=== PATIENT | female | born 1965 | race Caucasian/White ===

== ENCOUNTER → 2017-01-20 | Outpatient (CLI) | payer BC ==
[~2017-01-20] MED LIST: ATOR10TA82 PO; FRRG PO; HYDR50TA3 PO; LORA0.5T12 PO; LOSA1TAB PO; POTA20TA13 PO; PSYL55.43 PO; SENNTAB23 PO
--- NOTE | 2017-01-24 07:47 | MAMMOGRAPHY REPORT ---
BILATERAL DIGITAL SCREENING MAMMOGRAM TOMOSYNTHESIS WITH CAD: 01/20/2017 CLINICAL HISTORY: Routine screening. Patient has no complaints. TECHNIQUE: Breast tomosynthesis in addition to standard 2D mammography was performed. Current study was also evaluated with a Computer Aided Detection (CAD) system. COMPARISON: Comparison is made to exams dated: 03/21/2014 mammogram, 03/26/2013 mammogram, 03/26/2013 ul trasound, and 03/15/2013 [facility]. BREAST COMPOSITION: There are scattered areas of fibroglandular density in both breasts. FINDINGS: There has been no significant interval change comparing to the prior mammograms from 2013 and 2014. There are a few scattered stable benign-appearing microcalcifications. No suspicious mass , architectural distortion or cluster of suspicious microcalcifications is seen. IMPRESSION: ACR BI-RADS CATEGORY 1: NEGATIVE There is no mammographic evidence of malignancy. A 1 year screening mammogram is recommended. The pa tient will receive written notification of the results. Approximately 10% of breast cancers are not detected with mammography. A negative mammographic report should not delay biopsy if a clinically suggestive mass is present. Mel Mark M.D. ay/:01/23/2017 15:52:54 Department Store Salesperson: Myriam JEFFR, M, [facility] letter sent: Normal 1/2 BI-RADS Code: ACR BI-RADS Category 1: Negative
== END | disposition home or self-care (01) ==
LOC: C.MAMM 13:48
PROVIDERS: ATTEND Nurse Practitioner Family
DX: Z12.31 Encounter for screening mammogram for malignant neoplasm of breast (principal)

== ENCOUNTER 2023-06-20 10:25 | Observation (INO) ==
--- NOTE | 2023-05-23 14:57 | PAT Medication Instructions ---
Medication Instructions Date of Service May 23, 2023 Home Medications L.acidophilus,rhamnosus-B.breve-S.thermophilus 3 billion cell chew tab 1 tab PO QAM atorvastatin 20 mg tablet 20 mg PO QPM buspirone 10 mg tablet 10 mg PO QPM cholecalciferol (vitamin D3) 25 mcg (1,000 unit) capsule (Vitamin D3) 25 mcg PO QPM hydrochlorothiazide 50 mg tablet 25 mg PO QAM losartan 25 mg tablet 25 mg PO QAM magnesium glycinate 100 mg tablet 100 mg PO QPM potassium chloride 20 mEq tablet,extended release 20 meq PO BID DO NOT take the morning of surgery L.acidophilus,rhamnosus-B.breve-S.thermophilus 3 billion cell chew tab 1 tab PO QAM hydrochlorothiazide 50 mg tablet 25 mg PO QAM losartan 25 mg tablet 25 mg PO QAM potassium chloride 20 mEq tablet,extended release 20 meq PO BID Take evening before surgery atorvastatin 20 mg tablet 20 mg PO QPM buspirone 10 mg tablet 10 mg PO QPM cholecalciferol (vitamin D3) 25 mcg (1,000 unit) capsule (Vitamin D3) 25 mcg PO QPM magnesium glycinate 100 mg tablet 100 mg PO QPM potassium chloride 20 mEq tablet,extended release 20 meq PO BID Other Notes NOTHING TO EAT OR DRINK AFTER MIDNIGHT. If you have any questions please call us at [phone] or [phone] or [phone] or [phone]
--- NOTE | 2023-05-31 13:47 | Anesthesiology Consultation ---
Date of Service May 31, 2023 Assessment & Plan (1) Encounter for pre-operative examination: Chart Review Chart Review: Acceptable Risk for Surgery (pending PCP clearance and most Hgb A1C results ) and Patient seen in Pre Admission Testing - Awaiting PCP clearance 06/08/23 (Katia Marie [facility]) - Please obtain most recent Hgb A1C results from April 2023 ([facility]) (per surgeon's office) Awareness with last TKA (2015) Pt currently scheduled as 23 hours observation. If surgeon decides to change patient to Same Day Joint, patient would be acceptable risk for TKA, pending patient is motivated, has good support and surgeon's office completes [facility] preop requirements. Per PAT appt on 05/31/23, no recent illness/disease exposures, illness related symptoms, or recent illness/disease positive tests. Will leave to surgeon's discretion if preop Covid testing needed Teaching & Discussion Pre-Anesthesia Teaching/Discussion Notes: Instructed NPO after midnight before surgery,except medications with 15 cc of water. Medication instructions provided according to the PAT guidelines. History Surgery Operation Date: 06/20/23 07:00 Proposed Procedures p Left Total Knee Arthroplasty - Sam Margarette Rain MD Height/Weight Height: 5 ft 4 in Weight: 113.9 kg Allergies Allergy/AdvReac Type Severity Reaction Status Date / Time lisinopril AdvReac Mild Cough Verified 05/18/23 12:08 Medications Home Medications Medication Instructions Recorded Confirmed Last Taken L.acidophilus,rhamnosus-B.breve-S.thermophilus 1 tab PO QAM 05/18/23 05/18/23 Unknown 3 billion cell chew tab atorvastatin 20 mg tablet 20 mg PO QPM 05/18/23 05/18/23 Unknown buspirone 10 mg tablet 10 mg PO QPM 05/18/23 05/18/23 Unknown cholecalciferol (vitamin D3) 25 25 mcg PO QPM 05/18/23 05/18/23 Unknown mcg (1,000 unit) capsule (Vitamin D3) hydrochlorothiazide 50 mg tablet 25 mg PO QAM 05/18/23 05/18/23 Unknown losartan 25 mg tablet 25 mg PO QAM 05/18/23 05/18/23 Unknown magnesium glycinate 100 mg tablet 100 mg PO QPM 05/18/23 05/18/23 Unknown potassium chloride 20 mEq 20 meq PO BID 05/18/23 05/18/23 Unknown tablet,extended release Past Medical History Medical History Anxiety Hx of constipation Hyperlipidemia Hypertension Mitral valve prolapse 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, stable no recent ECHO Exercise / Class Metabolic Activity II 4-5 Yardwork/Stairs/Walk up hill (one flight of stairs - no chest pain or SOB - uses cane for ambulation ) Past Surgical History Surgical History History of colonoscopy History of tonsillectomy and adenoidectomy Knee joint replacement status rt Past Anesthesia History No Hx of Anesthesia Complications and No Family Hx of Anesthesia Complications History of PONV No Hx of PONV and No Hx of Motion Sickness Social History Smoking Status: Never smoker Do You Dip or Chew Tobacco: No Hx Alcohol Use: Yes alcohol intake frequency: a few times a month Hx Substance Use: No substance use type: does not use Review of Systems Patient denies chest pain, shortness of breath, dyspnea on exertion, reflux, cough, wheezing, palpitations. No hx of seizures, stroke, MT, apnea/snoring. No hx of blood clots or blood transfusions Physical Exam Vital Signs VITALS BP 151/84 P 75 TEMP 98.2 SP02 96% RESP 16 Constitutional no acute distress ENMT Mouth: no TMJ clicking Thyromental Distance: > or= 3.5 Finger Breadths (3.5) Mallampati Class: I Crowns to side teeth Neck neck extension not limited Respiratory normal respiratory effort; no respiratory distress Auscultation: lungs clear to auscultation bilaterally; no wheezes Cardiovascular Rate/Rhythm: regular rate and regular rhythm Heart Sounds: no murmur (no significant murmur noted on exam ) Vessels: no carotid bruit (Discussed with Dr. Mckeon- no further evaluation needed) Musculoskeletal Spine: no pain with cervical ROM Extremities: extremities normal to inspection Psychiatric Orientation: alert Lab Results Anesthesia Preop Results Results Anesthesia Widget: WBC 8.51 K/ul (4.8-10.8) 05/31/23 Hgb 13.1 g/dl (12.0-16.0) 05/31/23 Hct 37.8 % (37.0-47.0) 05/31/23 Plt 249 K/uL (130-400) 05/31/23 Na 135 mmol/L (136-145) L 05/31/23 K 3.3 mmol/L (3.5-5.1) L 05/31/23 Cl 100 mmol/L (98-107) 05/31/23 CO2 26 mmol/L (21-32) 05/31/23 BUN 14 mg/dl (6-23) 05/31/23 Creat 0.64 mg/dl (0.6-1.2) 05/31/23 Glucose Level 124 mg/dl (70-99(Fasting)) H 05/31/23 PT 10.3 Seconds (9.0-12.0) 05/31/23 PTT 25 Seconds (21-31) 05/31/23 INR 0.9 (0.9-1.1) 05/31/23 Urine Color Yellow 05/31/23 Urine Appearance Clear (Clear) 05/31/23 Urine pH 7.0 (4.5-7.5) 05/31/23 Urine Specific [place] 1.008 (1.000-1.030) 05/31/23 Urine Protein Negative (Negative) 05/31/23 Urine Glucose (UA) Negative (Negative) 05/31/23 Urine Ketones Negative (Negative) 05/31/23 Urine Blood Negative (Negative) 05/31/23 Urine Nitrite Negative (Negative) 05/31/23 Urine Bilirubin Negative (Negative) 05/31/23 Urine Urobilinogen Negative (Negative) 05/31/23 Urine Leukocyte Esterase Trace (Negative) H 05/31/23 Urine WBC (Auto) 0-5 /hpf (0-5) 05/31/23 Urine RBC (Auto) 0-2 /hpf (0-2) 05/31/23 Urine Hyaline Casts (Auto) 0-2 /lpf (0-2) 05/31/23 Urine Epithelial Cells (Auto) 0-2 /hpf (0-2) 05/31/23 Urine Bacteria (Auto) None Seen (None Seen) 05/31/23 Blood Type AB Positive 05/31/23 Antibody Screen NEGATIVE 05/31/23 Testing Electrocardiogram Date: 05/31/23 Findings: + NSR @ (74bpm) Nonspecific ST abnormality Chest X-Ray Date: 04/13/23 FINDINGS: PA and lateral chest radiographs are compared to study dated 07/10/2015. The cardiomediastinal silhouette is unremarkable noting atherosclerotic calcification of the thoracic aorta. There is mild bibasilar scarring/atelectasis. The lungs and pleural spaces are otherwise clear. There is no pneumothorax. The bony thorax appears intact. IMPRESSION: No active disease in the chest.
[~2023-06-20 10:25] MED LIST changes: -ATOR10TA82 PO; +BUPIVACAINE 0.5 % 5 MG/1 ML PF 10ML VIAL ONE; -FRRG PO; -HYDR50TA3 PO; -LORA0.5T12 PO; -LOSA1TAB PO; -POTA20TA13 PO; -PSYL55.43 PO; +ROPIVACAINE 0.5% 5 MG/ML 30 ML VIAL ONE; -SENNTAB23 PO
[2023-06-20] MEDS ORDERED: PROPOFOL IV EMULSION 10 MG/ML 20 ML VIAL IV ONE ×5 (10:29→12:48)
[2023-06-20] MEDS ORDERED: fentaNYL citrate PF 100 MCG/2 ML VIAL ONE (10:29)
[2023-06-20] MEDS ORDERED: MIDAZOLAM HCL 1 MG/ML 2ML VIAL ONE ×3 (10:29→12:08)
[2023-06-20] MEDS: ACETAMINOPHEN 500 MG TAB PO SCH ×2 (11:05→19:45)
[2023-06-20] MEDS: CeleBREX 200 MG CAP PO SCH (11:06)
[2023-06-20] MEDS: Scopolamine 1 MG TDSY TD SCH (11:06)
[2023-06-20] MEDS: LR 500ML BOLUS, THEN 15ML/HR IV SCH (11:10)
[2023-06-20] MEDS ORDERED: ONDANSETRON INJ 2 MG/ML 2 ML VIAL IV PRN (11:10)
[2023-06-20] MEDS ORDERED: ePHEDrine sulfate 50 MG/ML AMP IV PRN (11:10)
[2023-06-20] MEDS ORDERED: fentaNYL citrate PF 100 MCG/2 ML VIAL IV PRN (11:10)
[2023-06-20] MEDS ORDERED: ATROPINE SULFATE 0.1 MG/ML 10ML SYR IV PRN (11:10)
--- NOTE | 2023-06-20 11:12 | History & Physical Bridge Note ---
Date of Service June 20, 2023 History & Physical Bridge Note I have examined the patient, reviewed the History & Physical and in the interval since the performance of the History & Physical I have noted the following changes of clinical significance: no changes noted
[2023-06-20] MEDS: LR 60ML/HR IV SCH (11:26)
[2023-06-20] MEDS: TRANEXAMIC ACID 1,000 MG **IV Pre-op IV SCH (11:26)
[2023-06-20] MEDS: ROPIV 0.5% 246mg, Ketorolac 30mg, EPINEPHrine 0.5mg in NSS INFIL SCH (12:26)
[2023-06-20] MEDS: ceFAZolin 2000MG 2,000 MG/15 ML SYR IV SCH ×2 (12:26→21:54)
[2023-06-20] MEDS: ORTHO JOINT ANESTHETIC ONE (12:27)
[2023-06-20] MEDS ORDERED: PHENYLEPHRINE 100MCG/ML 10ML SYR IV ONE (12:49)
[2023-06-20] MEDS ORDERED: ePHEDrine sulfate 50 MG/ML AMP ONE (13:06)
--- NOTE | 2023-06-20 13:52 | Operative Report ---
Post Operative Report Pre & Post Diagnosis Operation Date: 06/20/23 12:20 Pre-Op Diagnosis: Osteoarthritis Knee Left Post-Op Diagnosis: Osteoarthritis Knee Left I identified the patient and participated in the time-out.: Yes Procedure Operation Date: 06/20/23 12:20 Actual Procedures p Left Total knee replacement, imageless computer assisted navigation (Left) - Sam Rain MD Surgeon Sam Rain MD Ice House Supervisor Nikko rosenberg PA-C (No fellow avail) Estimated Blood Loss 75 Findings See Below Examined Under Anesthesia: ROM -- There was 5 degrees to 130 degrees of flexion Ligamentous examination -- revealed stable: Maria De Jesus, posterior drawer, varus at 0 and 30 degrees; and valgus stress at 0 and 30 degrees showed pseudolaxity of 1mm. [place] Grade IV changes of medial and patellofemoral compartments and grade II-III changes LFC. There were marginal osteophytes. Fluids 1400 cc Specimens Left knee contents Anesthesia Type MAC Spinal Regional Complications none Indications This is a 57-year-old female who has clinical and radiographic findings consistent with osteoarthritis of the a left knee. I recommended that a left total knee replacement be performed. The patient understands the risks of surgery, which include but not limited to: bleeding, infection, re-operation, damage to nerves and arteries, continued knee pain, knee stiffness, DVT, and . The patient understands all of these instructions and explanations, all of his questions have been satisfactorily addressed and the patient has elected to proceed. Informed consent was signed. Description of Procedure IMPLANTS: 1. Femur: Triathlon #5 Left PS. 2. Tibia: Triathlon #4 [place] with 12 x 50 mm stem. 3. Insert: Triathlon #4 x 13 mm PS X3 poly. 4. Patella: Triathlon A29 x 9 mm X3 poly. 5. [place] cement. Nikko Rosenberg PA-C is assisting with positioning, retracting, and closure due to fellow not available. Procedure: The patient was taken to the Operating Room and placed in the supine position after spinal and adductor canal nerve block was administered. My initials and a multidisciplinary time-out were used to identify the left leg as the correct operative limb. A tourniquet was placed high in the thigh. Prior to the incision, 2 grams of intravenous Ancef were given. The left leg was then prepped and draped in a standard sterile fashion. An Esmarch was used to exsanguinate the leg and the tourniquet was inflated to 250 mmHg. The planned mid-line 20 cm incision was created exposing the extensor mechanism. The medial parapatellar arthrotomy was made and the patella was everted. The patella was addressed first. It was prepared by reaming from 21 mm down to 12 mm. An A29 button was found to fit best. The peg holes were made in the standard fashion. The femur was addressed next and using computer assisted OrthoAlign with 3 degrees of flexion and 0 degrees of valgus, removing 10 mm in the standard fashion for the distal cut. The cut was made and the 4-in-1 cutting block for a size 5 femur was placed. These cuts and the cuts to place the box were made in the standard fashion. Our attention was then drawn to the tibia cut with using imageless computer assisted OrthoAlign, taking 2 mm from the medial low side. There was sufficient extension and flexion gap to fit a 13 mm spacer. A #4 Tibial baseplate fit well. A trial with a 13 mm spacer showed excellent stability in both flexion and extension, with good ligament balance, and thumbs free patellar tracking. Range of motion of 0-130 degrees. The tibial baseplate was prepped for the keel and stem. A stem was used due to some areas of soft bone, to avoid subsidence. All components were removed. 90 ml of total knee cocktail were injected into the soft tissues and periosteum. All surfaces were copiously irrigated prior to placement of the components. The femoral component followed by Tibial baseplate were cemented in place and a 13mm trial placed. Next, the patellar button was placed using the same cement. Once the cement had cured, the range of motion and stability were unchanged. The 9 mm X3 poly was placed. Again, the range of motion and stability were unchanged. The tourniquet was deflated and second dose of TXA was given. Hemostasis was obtained. The extensor mechanism was closed with 1-0 Vicryl and 0 Stratafix with the knee bent approximately 60 degrees in a standard fashion. The peritenon and deep fascia was closed with 2-0 Vicryl. The subcutaneous layer was closed with 3-0 Vicryl. The skin was closed with Zipline and shield. The limb was cleaned and dried. 4x4 dressing was placed over top followed by ABDs, sterile Webril, and a foot to thigh Bryan bandage. The patient was then transferred to the Recovery Room in stable condition. The sponge and needle counts were correct. POST-OP INSTRUCTIONS: The patient will be WBAT. The patient will be admitted to the hospital. Co mplete 24-hour course antibiotics. Labs will be obtained during the stay. DVT prophylaxis will included aspirin for 6 weeks, TEDs, and mechanical foot pumps. The dressing will be changed postop day #2-3 and covered with a Silverlon dressing. I attest to the content of the Intraoperative Record and any orders documented therein. Any exceptions are noted below.
--- NOTE | 2023-06-20 13:52 | Post Operative Brief Note ---
Immediate Post Op Note v1 Date of Surgery June 20, 2023 Pre & Post Diagnosis Operation Date: 06/20/23 12:20 Pre-Op Diagnosis: Osteoarthritis Knee Left Post-Op Diagnosis: Osteoarthritis Knee Left I identified the patient and participated in the time-out.: Yes Procedure Operation Date: 06/20/23 12:20 Actual Procedures p Left Total Knee Arthroplasty(Left) - Sam Rain MD Surgeon Sam Rain MD Copy Camera Operator Nikko rosenberg PA-C (No fellow avail) Estimated Blood Loss 75 Findings Consistent with Post-Op Diagnosis Fluids 1400 cc Specimens Left knee contents Anesthesia Type MAC Spinal Regional Complications none
--- NOTE | 2023-06-20 14:06 | Operative Report ---
Post Operative Report Pre & Post Diagnosis Operation Date: 06/20/23 12:20 Pre-Op Diagnosis: Osteoarthritis Knee Left Post-Op Diagnosis: Osteoarthritis Knee Left I identified the patient and participated in the time-out.: Yes Procedure Operation Date: 06/20/23 12:20 Actual Procedures p Left Total Knee Arthroplasty(Left) - Sam Rain MD Surgeon Sam Rain M.D. Clerical Assigner Nikko rosenberg PA-C (No fellow avail) Estimated Blood Loss 75 Findings Consistent with Post-Op Diagnosis Specimens bone and soft tissue Anesthesia Type MAC Spinal Regional Description of Procedure Patient was taken to the operating room and placed under IV sedation with spinal anesthesia and peripheral nerve block. Time out was performed. She was given 2 g of IV Ancef for surgical prophylaxis. She was given 1 g of IV TXA preoperatively for bleeding prophylaxis. She was prepped and draped in routine sterile fashion. I was present during the entire case and assisted with positioning, tissue retraction, trialing of implants, implantation of hardware, hemostasis, cementing, closure and dressings. Please see Dr. Rain's operative report for further details regarding today's procedure. Patient was awakened and transferred to the recovery room in stable condition. I attest to the content of the Intraoperative Record and any orders documented therein. Any exceptions are noted below.
--- NOTE | 2023-06-20 14:40 | XRay Report ---
LEFT KNEE 2 VIEWS History: Left total knee arthroplasty. Degenerative arthritis. Postop. FINDINGS: The patient is status post a left total knee arthroplasty. The hardware is intact. No fract ure or dislocation. IMPRESSION: Left total knee arthroplasty. No evidence for hardware complication. ACT 112: Negative or not required by law. Electronically signed by: Abilio Heredia M.D. 06/20/2023 2:39 PM
--- NOTE | 2023-06-20 14:54 | Anesthesiology Progress Note ---
Date of Service June 20, 2023 Anesthesia Post Procedure Vital Signs Vital Signs: Temp Pulse Pulse Resp BP Pulse Ox O2 Del Method 06/20/23 14:50 79 16 147/76 H 100 Room Air 06/20/23 14:40 77 20 151/82 H 100 Room Air 06/20/23 14:30 86 18 134/67 97 Room Air 06/20/23 14:20 97.5 F L 87 18 142/66 H 98 Room Air 06/20/23 14:10 92 H 14 123/63 98 Room Air 06/20/23 14:01 97.2 F L 92 H 19 110/52 L 97 Room Air 06/20/23 10:52 98.8 F 80 20 158/91 H 95 Room Air Pain Intensity Left Knee: Pain Intensity: 3 Transfer of Care Handoff Completed per policy Notes Mental Status: alert / awake / arousable and participated in evaluation Patient Amnestic to Procedure: Yes Nausea / Vomiting: adequately controlled Pain: adequately controlled Airway Patency, RR, SpO2: stable & adequate BP & HR: stable & adequate Hydration State: stable & adequate Neuraxial Anesthesia: was administered and sensory block is resolving Anesthetic Complications: no major complications apparent and Pt Satisfied with anesthetic care
[2023-06-20] MEDS ORDERED: HYDROmorphone INJ 0.5 MG/0.5 ML SYR IV PRN (16:04)
[2023-06-20] MEDS ORDERED: NALOXONE HCL 0.4 MG/1 ML VIAL/CARP IV PRN (16:04)
[2023-06-20] MEDS ORDERED: bisacodyL 10 MG SUPP PR PRN (16:04)
[2023-06-20] MEDS ORDERED: METOCLOPRAMIDE HCL INJ 5 MG/ML 2 ML VIAL IV PRN (16:04)
[2023-06-20] MEDS ORDERED: MAGNESIUM HYDROXIDE SUSP 30 ML UDC PO PRN (16:04)
[2023-06-20] MEDS ORDERED: diphenhydrAMINE 50 MG/ML VIAL IV PRN (16:04)
[2023-06-20] MEDS: TRANEXAMIC ACID 1,000 MG **IV Intra-op IV SCH (16:49)
[2023-06-20] MEDS: Scopolamine CHECK PATCH PLACEMENT SCH (17:00)
[2023-06-20] MEDS: SODIUM CHLORIDE 0.9% 1,000 ML IV SCH (17:00)
[2023-06-20] MEDS: KETOROLAC 30 MG/ML VIAL IV SCH (17:01)
--- NOTE | 2023-06-20 18:42 | Orthopedic Progress Note ---
Date of Service June 20, 2023 Assessment & Plan (1) Left knee DJD: Plan: POD #0 s/p L TKA, doing as well as expected. Resume diet. WBAT with walker. OOB to chair. Continue pain control. Complete 24 hours of antibiotics Check labs tomorrow. DVT prophylaxis: TEDs 3 weeks, foot pumps while in hospital, ASA 81 mg BID for 6 weeks. PT/OT. D/C planning. Present on Admission?: Yes Admission and Anticipated Discharge Date Admission Date: June 20, 2023 Subjective My left leg still feels numb and funny. Physical Exam Physical Exam: LLE: BCR < 2 sec. Sensation to Light touch is absent. Unable to wiggle her toes. Calf is soft and non-tender. Dressing is clean, dry, intact. Results & Data Vital Signs (Past 12 Hours) Vital Signs Temp Pulse Pulse Pulse Resp BP BP 06/20/23 18:00 36.3 C L 74 16 125/77 06/20/23 17:13 36.5 C 74 16 137/85 06/20/23 16:30 36.4 C L 86 18 151/79 H 06/20/23 15:59 36.4 C L 73 18 138/79 06/20/23 15:40 78 15 145/76 H 06/20/23 15:30 84 20 141/70 H 06/20/23 15:20 75 16 138/64 06/20/23 15:10 79 16 139/71 06/20/23 15:05 141/77 H 06/20/23 15:00 75 17 166/70 H 06/20/23 14:50 79 16 147/76 H 06/20/23 14:40 77 20 151/82 H 06/20/23 14:30 86 18 134/67 06/20/23 14:20 36.4 C L 87 18 142/66 H 06/20/23 14:10 92 H 14 123/63 06/20/23 14:01 36.2 C L 92 H 19 110/52 L 06/20/23 10:52 37.1 C 80 20 158/91 H Pulse Ox O2 Del Method 06/20/23 18:00 99 Room Air 06/20/23 17:13 99 Room Air 06/20/23 16:30 97 Room Air 06/20/23 15:59 100 Room Air 06/20/23 15:40 97 Room Air 06/20/23 15:30 97 Room Air 06/20/23 15:20 97 Room Air 06/20/23 15:10 98 Room Air 06/20/23 15:05 06/20/23 15:00 100 Room Air 06/20/23 14:50 100 Room Air 06/20/23 14:40 100 Room Air 06/20/23 14:30 97 Room Air 06/20/23 14:20 98 Room Air 06/20/23 14:10 98 Room Air 06/20/23 14:01 97 Room Air 06/20/23 10:52 95 Room Air Diagnostic Findings Impressions Knee X-Ray 06/20/23 14:09 LEFT KNEE 2 VIEWS History: Left total knee arthroplasty. Degenerative arthritis. Postop. FINDINGS: The patient is status post a left total knee arthroplasty. The hardware is intact. No fracture or dislocation. IMPRESSION: Left total knee arthroplasty. No evidence for hardware complication. ACT 112: Negative or not required by law. Electronically signed by: Abilio Heredia M.D. 06/20/2023 2:39 PM
[2023-06-20] MEDS: oxyCODONE HCL IR 5 MG TAB (IMMEDIATE RELEASE) PO PRN (19:51)
[2023-06-20] MEDS: HYDROmorphone INJ 1 MG/ML SYRINGE IV PRN (21:49)
[2023-06-20] MEDS: ASPIRIN 81 MG ECTAB PO SCH (21:56)
[2023-06-20] MEDS: DOCUSATE SODIUM 100 MG CAP PO SCH (22:00)
[2023-06-20] MEDS: ATORVASTATIN 20 MG TAB PO SCH (22:00)
[2023-06-20] MEDS: POTASSIUM CHLORIDE CRTAB 20 MEQ TABCR PO SCH (22:01)
[2023-06-20] MEDS: SENNA 8.6 MG TAB PO SCH (22:01)
[2023-06-20] MEDS: busPIRone 5 MG TAB PO SCH (22:02)
[2023-06-20] MEDS: CHOLECALCIFEROL 25 MCG (1000 UNITS) TAB PO SCH (22:02)
[2023-06-21] MEDS: MAGNESIUM OXIDE 400 MG TAB PO SCH (00:28)
--- NOTE | 2023-06-21 07:02 | Orthopedic Progress Note ---
Date of Service June 21, 2023 Assessment & Plan (1) Left knee DJD: Plan: POD #1 s/p L TKA, doing as well as expected. Resume diet. WBAT with walker. OOB to chair. Continue pain control. Complete 24 hours of antibiotics Re- Check pending labs. DVT prophylaxis: TEDs 3 weeks, foot pumps while in hospital, ASA 81 mg BID for 6 weeks. PT/OT. D/C planning home with HH. Will reassess if able to be d/c later today. Admission and Anticipated Discharge Date Admission Date: June 20, 2023 Subjective Increased left knee pain despite oral pain medicine rating a 5/10 Physical Exam Physical Exam: LLE: BCR < 2 sec. Sensation to Light touch is intact. Wiggle all her toes and ankle. Calf is soft and non-tender. Dressing is clean, dry, intact. Results & Data Vital Signs (Past 12 Hours) Vital Signs Temp Pulse Resp BP Pulse Ox O2 Del Method 06/21/23 03:19 36.7 C 65 16 128/81 96 Room Air 06/20/23 22:42 36.4 C L 74 14 115/73 94 Room Air Laboratory Results 06/21/23 Range/Units 06:21 WBC 7.87 (4.8-10.8) K/ul RBC 3.57 L (4.20-5.40) M/uL Hgb 10.9 L (12.0-16.0) g/dl Hct 32.6 L (37.0-47.0) % MCV 91.3 (80.0-100.0) fL MCH 30.5 (25.0-34.0) pg MCHC 33.4 (32.0-36.0) g/dL RDW Std Deviation 42.3 (36.4-46.3) fL RDW Coeff of Odrcas 12.5 (11.5-14.5) % Plt Count 186 (130-400) K/uL MPV 11.4 (9.4-12.4) fL Sodium Pending Potassium Pending Chloride Pending Carbon Dioxide Pending Anion Gap Pending BUN Pending Creatinine Pending Est Cr Clr Drug Dosing Pending Est GFR ( Amer) Pending Est GFR (Non-Af Amer) Pending BUN/Creatinine Ratio Pending Glucose Pending Calcium Pending
[2023-06-21 07:33] LABS: Hematocrit (blood only) 32.6 % (37.0-47.0); Hemoglobin 10.9 g/dl (12.0-16.0); Mean Corpuscular Hemoglobin 30.5 pg (25.0-34.0); Mean Corpuscular Hgb Conc 33.4 g/dL (32.0-36.0); Mean Corpuscular Volume 91.3 fL (80.0-100.0); Mean Platelet Volume 11.4 fL (9.4-12.4); Platelet Count 186 K/uL (130-400); RDW Coefficient of Variation 12.5 % (11.5-14.5); RDW Standard Deviation 42.3 fL (36.4-46.3); Red Blood Count 3.57 M/uL (4.20-5.40); White Blood Count 7.87 K/ul (4.8-10.8)
[2023-06-21 07:50] LABS: Potassium 3.6 mmol/L (3.5-5.1)
[2023-06-21 07:55] LABS: BUN Creatinine Ratio 17.9 (10-20); Creatinine Clr Calc Pharmacy 92.7 ml/min; Est GFR (African American) 96.4 ml/min; Est GFR (Non-African American) 83.2 ml/min
[2023-06-21] MEDS: dexAMETHasone 4 MG TAB PO SCH (08:11)
[2023-06-21] MEDS: ADVANCED PROBIOTIC 625 MG CAPSULE PO SCH (08:12)
[2023-06-21] MEDS: hydroCHLOROthiazide 25 MG TAB PO SCH (08:12)
[2023-06-21] MEDS: MULTIVITAMIN TAB PO SCH (08:12)
[2023-06-21] MEDS: LOSARTAN POTASSIUM 50 MG TAB PO SCH (08:15)
[2023-06-21] MEDS: ONDANSETRON INJ 2 MG/ML 2 ML VIAL IV PRN (09:20)
[2023-06-21] MEDS: CeleBREX 200 MG CAP PO SCH (19:29)
--- NOTE | 2023-06-22 09:38 | Orthopedic Progress Note ---
Date of Service June 22, 2023 Assessment & Plan (1) S/P total knee arthroplasty: Plan: The patient was educated regarding today's findings. Conservative care measures were discussed. Her dressings were changed by me. Silverlon dressing was placed. She may leave this in place until seen in the office in 2 weeks for follow-up. Continue on aspirin 81 mg twice daily for DVT prophylaxis Use the walker for ambulation Ice and elevate the knee frequently to reduce pain and swelling. Written discharge instructions were provided. Admission and Anticipated Discharge Date Admission Date: June 20, 2023 Subjective 57-year-old female seen today in her room. She is 2 days status post left total knee arthroplasty. She states she is doing well. Her pain is well-controlled. She is recovering better than when she had her right knee done. She feels ready for discharge to home. She is wondering when she can leave. She has already done occupational therapy this morning but not physical therapy. No other complaints at this time. She denies any chest pain, shortness of breath, nausea, or vomiting. Physical Exam Physical Exam: General: Well-developed, well-nourished, middle-aged female, in no acute distress. Laying in bed. Alert and oriented. Skin: Warm and dry with good turgor. No rashes. Postsurgical dressings are in place on the left knee. Upon removal, she has expected postoperative edema. Minimal ecchymosis. No erythema. Scant dried blood on her inner dressings. There is no active bleeding. Zipline is in place. Musculoskeletal: The patient has intact motor function to her knee, ankle, and toes. She is able to assist with straight leg raising. Neurologic: Gross sensation is intact across the left leg by soft touch. Peripheral pulses are 2+. Results & Data Vital Signs (Past 12 Hours) Vital Signs Temp Pulse Resp BP BP Pulse Ox O2 Del Method 06/22/23 08:42 36.7 C 76 18 130/77 95 Room Air 06/21/23 22:32 37.3 C 74 16 144/78 H 95 Room Air
--- OUTSIDE RECORDS SUMMARY | 2023-06-22 14:40 | External Medical Summary | Continuity of Care Document ---
Author Name Unknown Organization [address] Address [address] [place] [id number] Care Team Providers Care Rubber Goods Finisher Name Role Phone Katia Marie Margarette Primary Care Physician [phone] [id number] Date(s): 06/14/23 - 06/14/[address] [facility] [address], [address] [place] [address] [phone] Encounter Diagnosis High blood pressure(Discharge Diagnosis) - 06/15/23 Abnormal laboratory test result(Discharge Diagnosis) - 06/14/23 Diabetes mellitus screening(Discharge Diagnosis) - 06/14/23 Discharge Disposition: Home or Self Care Attending Physician: THELMA Gastelum Katy Marie Referring Physician: THELMA Gastelum Katy Marie Allergies, Adverse Reactions, Alerts Substance Reaction Severity Status lisinopril cough Active cashews tongue swelling/nausea Activ e Assessment and Plan Extracted from: Title:Office Visit Note Author:THELMA Gastelum Kat y Marie Date:06/15/23 1.High blood pressure Problem isChronic - not controlled Goal:maintenance Data:_ Plan:no adjustments at this time. continue current regimen. Start checking BP 1-2 hours AFTER taking medcations Discussed return precautions and ER precautions. Patient verbalizes understanding and agrees with plan Immunizations Given and Recorded Vaccine Date Status Refusal Reason influenza virus vaccine, inactivated 11/03/22 Give n influenza virus vaccine, inactivated 11/24/20 Give n influenza virus vaccine, inactivated 12/12/19 Santiago rded influenza virus vaccine, inactivated 11/13/17 Santiago rded influenza virus vaccine, inactivated 03/25/15 Give n SARS-CoV-2 (COVID-19) Ad26 vaccine 06/22/20 Record ed zoster vaccine, inactivated 1 02/27/20 Given zoster vaccine, inactivated 12/23/19 Given tetanus/diphtheria/pertuss, acel (Tdap) 12/02/16 G andrew 1Result Comment: ZR2EB exp 11/12/2021 Medications atorvastatin 20 mg oral tablet Start: 07/07/22 8:07:00 EDT, 1 tab, PO, qhs, Disp# 90 tab, Refills: 3, Pharmacy: [facility] Start Date: 07/07/22 Status: Ordered BuSpar 10 mg oral tablet Start: 06/05/23 15:54:00 EDT, See Instructions, Disp# 45 tab, Refills: 3, 0.5 tab po bid, Pharmacy:[facility] Start Date: 06/05/23 Status: Ordered hydroCHLOROthiazide 50 mg oral tablet Start: 01/18/23 17:47:00 EST, 1 tab, PO, Daily, Disp# 90 tab, Refills: 3, Pharmacy: [facility] Start Date: 01/18/23 Status: Ordered hydrocortisone 2.5% topical cream Start: 05/18/23 12:13:00 EDT, See Instructions, Disp# 28 g, Refills: 0, APPLY TO AFFECTED AREAS TWICE DAILY, Pharmacy: [facility] Start Date: 05/18/23 Status: Ordered hydrocortisone 2.5% topical cream Start: 01/17/22 15:18:00 EST, 1 appl, topical, bid, Disp# 30 g, Refills: 3, Pharmacy: [facility] Start Date: 01/17/22 Status: Ordered LORazepam 0.5 mg oral tablet Start: 05/18/23 12:12:00 EDT, 1 tab, PO, qhs, Disp# 30 tab, Refills: 0, Note to Pharmacy: PDMP verified, PRN: as needed for anxiety, Pharmacy: [facility] Start Date: 05/18/23 Status: Ordered olmesartan 20 mg oral tablet Start: 06/08/23 14:41:00 EDT, 1 tab, PO, Daily, Disp# 30 tab, Refills: 3, Pharmacy: [facility]/pharmacy #[id number] Start Date: 06/08/23 Stop Date: 10/06/23 Status: Ordered Potassium Chloride (Fno-Ftlp-Iig M20) 20 mEq oral tablet, extended release Start: 01/11/23 16:36:00 EST, 1 tab, PO, bid, Disp# 180 tab, Refills: 2, Pharmacy: [facility] Start Date: 01/11/23 Status: Ordered Wegovy (0.25 mg dose) subcutaneous solution Start: 06/08/23 14:37:00 EDT, 0.25 mg =, subQ, q7days, Disp# 4 each, Refills: 1, Pharmacy: [facility] Start Date: 06/08/23 Status: Ordered Mental Status 06/15/23 Barriers to Learning one year None evide nt Mandatory Health Literacy Documentation Yes Health Literacy Communication Barriers N ever Primary Language Wolof Problem List Condition Confirmation Course Effective Dates Status H ealth Status Informant Fracture of tibial tuberosity Confirmed Active Eczema Confirmed Active Status post total right knee replacement Confirmed Active High cholesterol Confirmed Active Hyperlipidemia Confirmed Active High blood pressure Confirmed Active Effusion of right knee Confirmed Active Acute pain of right knee Confirmed Active Knee pain, right Confirmed Active MVP (mitral valve prolapse) Confirmed Active Left knee pain Confirmed Active Prediabetes Confirmed Active Medial meniscus tear Confirmed Active Weight disorder Confirmed Active Diagnosis Diagnosis Type Effective Dates Health Status Clinical Service Informant High blood pressure Discharge Diagnosis 06/15/23 Abnormal laboratory test result Discharge Diagnosis 06/14/23 Non-Specified Diabetes mellitus screening Discharge Diagnosis 06/14/23 Non-Specified Procedures Procedure Date Related Diagnosis Body Site Status X-ray of left knee 1 07/01/22 Comp leted Mammogram 2 05/19/22 Completed Colonoscopy 3 03/30/22 Completed Mammogram 4 01/24/19 Completed Mammogram 5 01/20/17 Completed Open reduction and fixation 6 08/05/15 Completed Arthroplasty of knee 7 08/04/15 Co mpleted X-ray of right knee 8 12/22/14 Com pleted Colonoscopy 2011 Completed Tonsillectomy Completed 1IMPRESSION: 1.No acute fracture. Possible small left knee joint effusion. 2.Moderate tricompartmental osteoarthritis of the left knee. [facility] [address] [facility], [address] [place] [address], [id number] Mammography Report Patient: ADINA RASHEED Date: 05/18/22 MR#: [id number] [address] [facility] Acct ID:[id number]: Date: 1965[facility] Zip: [place] [address] Age: 56Location: MAMMO Sex: FRoom/Bed: Att Phy: Katia Marie CRNPDiagnosis: ASYMPTOMATIC Melly Phy: Katia Marie CRNPService Date: 05/18/22 Fam Phy: Interpreting Phy: Mel Mark MD Admit Phy: Ordering Phy: Katia Marie CRNP DICTATED BY: Mel Mark MD cc: Katia Marie CRNP~ BILATERAL DIGITAL SCREENING MAMMOGRAM TOMOSYNTHESIS WITH SYNTHETIC 2D WITH CAD: 05/18/2022 CLINICAL HISTORY: Routine screening examination. TECHNIQUE: Bilateral CC and MLO tomosynthesis images including synthesized 2D images (Intelligent 2D) were obtained. Current study was also evaluated with a Computer Aided Detection (CAD) system. COMPARISON: Comparison is made to exams dated: 05/17/2021 mammogram, 05/13/2020 mammogram, 01/24/2019 mammogram, 01/20/2017 mammogram - [facility], 03/21/2014 mammogram, and 03/26/2013 mammogram - [facility]. BREAST COMPOSITION: There are scattered areas of fibroglandular density. FINDINGS: The parenchymal pattern is unchanged. No developing mass, architectural distortion or cluster of suspicious microcalcifications is seen in either breast. IMPRESSION: ACR BI-RADS CATEGORY 2: BENIGN There is no mammographic evidence of malignancy. A 1 year screening mammogram is recommended.(05/19/2023) The patient will receive written notification of the results. Some breast cancers are not detected with mammography. A negative mammographic report should not delay biopsy if a clinically suggestive mass is present. Mel Mark M.D. ay/:05/18/2022 15:07:53 Marketing Engineer: RT Nathaly(Hanna)(M), [facility] letter sent: Normal 1/2 BI-RADS Code: ACR BI-RADS Category 2: Benign Signed By:Mel Mark MD05/18/22 1507 Created: 05/18/22 1429 Transcribed: 05/18/22 1507Transcriptionist: SYLVIA The status of this report is Signed. Draft = Not yet reviewed or approved by Medical Physician. Signed = Reviewed and approved by Medical Physician. 3COLO to cecum, redundant, hemorrhoids, diverticulosis. repeat 10 years. 4IMPRESSION: ACR BI-RADS CATEGORY 2: BENIGN There is no mammographic evidence of malignancy. A one year screening is recommended. 5No mammographic eviedence of malignancy. A 1 year screening mammogram is recommended. 6tibial tubercle 7R 8Tricompartmental osteoarthritis within the right knee most pronounced within the medial compartment. 9was normal Vital Signs Most recent to oldest [Reference Range]: 1 Height 161.2 cm (06/15/23 3:11 PM) Patient Weight 109.8 kg (06/15/23 3:11 PM) Body Mass Index 42.25 kg/m2 (06/15/23 3:11 PM) Temperature [36.5-37.9 DegC] 36.4 DegC *LOW* (06/15/23 3:11 PM) Heart Rate 82 bpm (06/15/23 3:11 PM) Blood Pressure 138/90mmHg (06/15/23 3:11 PM) Cuff Pulse Pressure 48 mmHg (06/15/23 3:11 PM) Social History Social History Type Response Smoking Status Never smoked cigaret blanca Sex Female FCM Outpt Note * THELMA Gastelum Katy Marie: PERFORM Event Display: FCM Outpt Note Authored Date: Chief Complaint Recheck bp. 130's over 80's in the morning. In the afternoon is 1teens to 130's over 70's. History of Present Illness Has been taking her BP at home. In the morning She has been taking her BP before taking her meds inthe morning. In the afternoons her BP has been 120-130/70-80. No MATHEWS, dizziness, CP, SOB My check in the office - 136/82 She does report stress and pain which are likely playing a factor. Review of Systems A total of 10 systems were reviewed. Pertinent positive and negatives addressed in HPI, all other findings are negative. Physical Exam Vitals & Measurements T:36.4C HR:82(Monitored) BP:138/90 SpO2:98% HT:161.2cm WT:109.800kg(Dosing) WT:109.8kg BMI:42.25 PHQ2 Data(Data Documented on:06/15/2023 15:10) Emotional health assessment NEGATIVE Constitutional: Alert and oriented, No acute distress, Well-appearing, Normal mood and affect Respiratory: Lung sounds are clear, equal chest rise and fall with breathing, no pursed lip breathing Cardiovascular: Heart sounds regular rate and rhythm, without gallop or murmur, no edema Skin: Warm, pink, dry, intact Assessment/Plan 1.High blood pressure Problem isChronic - not controlled Goal:maintenance Data:_ Plan:no adjustments at this time. continue current regimen. Start checking BP 1-2 hours AFTER taking medcations Discussed return precautions and ER precautions. Patient verbalizes understanding and agrees with plan Attestation I attest that I have spent 25 minutes in care and coordination of this patient. 4 min previsit: chart review and preparation 18 min [id number]: obtaining HPI, PE, discussing Assessment and Plan, and other pertinent discussions/decisionsr/t care 3 min postvisit: coordination of care, orders, and documentation/paperwork Problem List/Past Medical History Ongoing Acute pain of right knee Eczema Effusion of right knee Fracture of tibial tuberosity High blood pressure High cholesterol Hyperlipidemia Knee pain, right Left knee pain Medial meniscus tear MVP (mitral valve prolapse) Prediabetes Status post total right knee replacement Weight disorder Historical Anxiety Chicken pox Degenerative tear of meniscus of right knee Osteoarthritis of right knee Procedure/Surgical History X-ray of left knee| Service Date: 07/01/2022Mammogram| Service Date: 3Colonoscopy| Service Date: 03/30/2022Mammogram| Service Date: 01/24/2019Mammogram| Service Date: 01/20/2017Open reduction and fixation| Service Date: 08/05/2015Arthroplasty of knee| Service Date: 08/04/2015X- ray of right knee| Service Date: 12/22/2014Colonoscopy| Service Date: 2011Tonsillectomy Medications atorvastatin(atorvastatin 20 mg oral tablet), 20 mg= 1 tab, PO, qhs, 3 refills busPIRone(BuSpar 10 mg oral tablet), See Instructions, 3 refills hydroCHLOROthiazide(hydroCHLOROthiazide 50 mg oral tablet), 50 mg= 1 tab, PO, Daily, 3 refills hydrocortisone topical(hydrocortisone 2.5% topical cream), See Instructions hydrocortisone topical(hydrocortisone 2.5% topical cream), 1 appl, topical, bid, 3 refills LORazepam(LORazepam 0.5 mg oral tablet), 0.5 mg= 1 tab, PO, qhs, PRN olmesartan(olmesartan 20 mg oral tablet), 20 mg= 1 tab, PO, Daily, 3 refills potassium chloride(Potassium Chloride (Pss-Xpri-Ncy M20) 20 mEq oral tablet, extended release), 1 tab, PO, bid semaglutide(Wegovy (0.25 mg dose) subcutaneous solution), 0.25 mg, subQ, q7days, 1 refills Allergies cashewstongue swelling/nausea lisinoprilcough Social History Smoking Status Never smoked cigarettes Alcohol Use:Current Type:Beer Frequency:1-2 times per week Exercise Duration (average number of minutes):40 Times per week:5-6 times/week Exercise type:Walking Sexual Sexually active:Yes Uses condoms:Yes Substance Abuse - Denies Substance Abuse Tobacco - Denies Tobacco Use Family History Cancer of colon: PGF and PGM. Hypertension: Mother. Neuroblastoma: Sister. Prostate carcinoma: MGF. Stroke: Father and MGM. Type II diabetes mellitus: MGM. Health Status Family Member(s) Immunizations Vaccine Date Status influenza virus vaccine, inactivated 11/03/2022 Given influenza virus vaccine, inactivated 11/24/2020 Given SARS-CoV-2 (COVID-19) Ad26 vaccine 06/22/2020 Recorded zoster vaccine, inactivated 02/27/2020 Given Comments : ZR2EB exp 11/12/2021 zoster vaccine, inactivated 12/23/2019 Given influenza virus vaccine, inactivated 12/12/2019 Recorded influenza virus vaccine, inactivated 11/13/2017 Recorded tetanus/diphtheria/pertuss, acel (Tdap) 12/02/2016 Given influenza virus vaccine, inactivated 03/25/2015 Given Recommendations Health Maintenance Pending(in the next year) OverDue Cervical Cancer Screening due02/26/23and every 3year Due Adult COVID-19 Vaccination due06/15/23Unknown Frequency Adult Social Determinants of Health Screening due05/02/24Unknown Frequency Due In Future Adult Influenza Vaccine not due until08/13/23and every 1year Satisfied(in the past 1 year) Satisfied Adult Influenza Vaccine on11/03/22.Satisfied by CYNTHIA Bowers Gillian Body Mass Index on06/15/23.Satisfied by ROHITH Ferrell Angela Breast Cancer Screening on05/25/23.Satisfied by ROHITH Ferrell Angela Electronic Signature on File CC: Andreea Lozano, [address] [place] [id number] Electronically Reviewed/Signed by: THELMA Sagastume Author Signature Dt/Tm:06/15/2023 03:37 PM Department of Family Medicine [facility] Patient Care team information Care Team Personnel Name: THELMA Marie Shari A Position: Nurse Pract - Family Med Member Role: Primary Care Provider Address: Address: [address] [place] [id number] [place] Care Team Related Persons Name: LAZARO PUENTES Address: home [address] [place] [address] [place] [phone]"
--- OUTSIDE RECORDS SUMMARY | 2023-06-22 14:40 | External Medical Summary | Continuity of Care Document ---
Author Name Unknown Organization [address] Address [address] [place] [address] [place], [place] [id number] Care Team Providers Care Bonderizer Operator Name Role Phone Katia Marie Primary Care Physician [phone] [id number] Date(s): 06/08/23 - 06/08/[address], [facility] [address] [place] [address] [phone] Encounter Diagnosis Preop general physical exam(Discharge Diagnosis) - 06/07/23 Obesity(Discharge Diagnosis) - 06/08/23 Benign essential HTN(Discharge Diagnosis) - 06/08/23 HLD (hyperlipidemia)(Discharge Diagnosis) - 06/08/23 Discharge Disposition: Home or Self Care Attending Physician: THELMA Marie Shari A Referring Physician: THELMA Marie Shari A Allergies, Adverse Reactions, Alerts Substance Reaction Severity Status lisinopril cough Active cashews tongue swelling/nausea Activ e Immunizations Given and Recorded Vaccine Date Status [...] 12/23/19 Given tetanus/diphtheria/pertuss, acel (Tdap) 12/02/16 G iven 1Result Comment: ZR2EB exp 11/12/2021 Medications atorvastatin 20 mg oral tablet Start: 07/07/22 8:07:00 EDT, 1 tab, PO, qhs, Disp# 90 tab, Refills: 3, Pharmacy: [facility] Start Date: 07/07/22 Status: Ordered BuSpar 10 mg oral tablet Start: 06/05/23 15:54:00 EDT, See Instructions, Disp# 45 tab, Refills: 3, 0.5 tab po bid, Pharmacy:[facility] Start Date: 06/05/23 Status: Ordered hydroCHLOROthiazide 50 mg oral tablet Start: 01/18/23 17:47:00 EST, 1 tab, PO, Daily, Disp# 90 tab, Refills: 3, Pharmacy: [facility] Start Date: 01/18/23 Status: Ordered hydrocortisone 2.5% topical cream Start: 05/18/23 12:13:00 EDT, See Instructions, Disp# 28 g, Refills: 0, APPLY TO AFFECTED AREAS TWICE DAILY, Pharmacy: [facility] Start Date: 05/18/23 Status: Ordered hydrocortisone 2.5% topical cream Start: 01/17/22 15:18:00 EST, 1 appl, topical, bid, Disp# 30 g, Refills: 3, Pharmacy: [facility] Start Date: 01/17/22 Status: Ordered LORazepam 0.5 mg oral tablet Start: 05/18/23 12:12:00 EDT, 1 tab, PO, qhs, Disp# 30 tab, Refills: 0, Note to Pharmacy: PDMP verified, PRN: as needed for anxiety, Pharmacy: [facility] Start Date: 05/18/23 Status: Ordered olmesartan 20 mg oral tablet Start: 06/08/23 14:41:00 EDT, 1 tab, PO, Daily, Disp# 30 tab, Refills: 3, Pharmacy: [facility]/pharmacy #[id number] Start Date: 06/08/23 Stop Date: 10/06/23 Status: Ordered Potassium Chloride (Lep-Kdcu-Hej M20) 20 mEq oral tablet, extended release Start: 01/11/23 16:36:00 EST, 1 tab, PO, bid, Disp# 180 tab, Refills: 2, Pharmacy: [facility] Start Date: 01/11/23 Status: Ordered Wegovy (0.25 mg dose) subcutaneous solution Start: 06/08/23 14:37:00 EDT, 0.25 mg =, subQ, q7days, Disp# 4 each, Refills: 1, Pharmacy: [facility] Start Date: 06/08/23 Status: Ordered Mental Status 06/08/23 Barriers to Learning one year None evide nt Mandatory Health Literacy Documentation Yes Health Literacy Communication Barriers N ever Primary Language Thai Problem List Condition Confirmation Course Effective Dates [...] Diagnosis Diagnosis Type Effective Dates Health Status Cl inical Service Informant Preop general physical exam Discharge Diagnosis 06/07/23 Non-Specified HLD (hyperlipidemia) Discharge Diagnosis 06/08/23 Non-Specified Obesity Discharge Diagnosis 06/08/23 Non-Specified Benign essential HTN Discharge Diagnosis 06/08/23 Non-Specified Procedures Procedure Date Related Diagnosis Body [...] 2.Moderate tricompartmental osteoarthritis of the left knee. [address] [facility], [address] [place], [address] Mammography Report Patient: ADINA RASHEEDdmit Date: 05/18/22 MR#: [id number] [address] [facility] Acct ID:[id number]: Date: 1965[facility] Zip: [place] [address] Age: 56Location: MAMMO Sex: FRoom/Bed: Att Phy: Katia Marie CRNPDiagnosis: ASYMPTOMATIC Melly Phy: Katia Marie CRNPService Date: 05/18/22 [facility] Phy: Interpreting Phy: Mel Makr MD Admit Phy: Ordering Phy: Katia Marie [...] 05/13/2020 mammogram, 01/24/2019 mammogram, 01/20/2017 mammogram - [facility], 03/21/2014 mammogram, and 03/26/2013 mammogram - [facility]. BREAST COMPOSITION: There are scattered areas of [...] is present. Mel Mark M.D. ay/:05/18/2022 15:07:53 Clinical Project Assistant: RT Nathaly(R)(M), [facility] letter sent: Normal 1/2 BI-RADS Code: ACR [...] recent to oldest [Reference Range]: 1 Height 161.5 cm (06/08/23 1:59 PM) Patient Weight 110.6 kg (06/08/23 1:59 PM) Body Mass Index 42.4 kg/m2 (06/08/23 1:59 PM) Temperature [36.5-37.9 DegC] 36.5 DegC (06/08/23 1:59 PM) Blood Pressure 150/92mmHg (06/08/23 1:59 PM) Cuff Pulse Pressure 58 mmHg (06/08/23 1:59 PM) Social History Social History Type Response Smoking Status Never smoked cigaret blanca Sex Female Patient Care team information Care Team Personnel Name: THELMA Marie Shari A Position: Nurse Pract - Family Med Member Role: Primary Care Provider Address: Address: [address] [address] Care Team Related Persons Name: DHAVAL LAZARO Address: home [address] [place], [place] [address] [phone]
--- OUTSIDE RECORDS SUMMARY | 2023-06-22 14:41 | External Medical Summary ---
Author Name Unknown Address Unknown Organization : Laboratory Report Ordering Provider Test Date Status KatiaCynthia connell 06/02/2023 07:33:00 Final Observation Date Value Abnormality Reference (Units ) Status Hemoglobin A1c/Hemoglobin.total in Blood 06/03/2023 05:16:00 5.9 Above high normal <5.7 (% of total Hgb) Final For someone without known di abetes, a hemoglobin
A1c value between 5.7% and 6.4% is consistent with
prediabetes and should be confirmed with a
follow-up test.

For someone with known diabetes, a value <7%
indicates that their diabetes is well controlled. A1c
targets should be individualized based on duration of
diabetes, age, comorbid conditions, and other
considerations.

This assay result is consistent with an increased risk
of diabetes.

Currently, no consensus exists regarding use of
hemoglobin A1c for diagnosis of diabetes for children.

Specimen Received d/t: 06/03/2023 01:02:00

Lab test performed by:
[facility]
[address]
[place] [phone]
Husam Melendez MD eAG (mmol/L) 06/03/2023 05:16:00 6.8 (mmol/L ) Final
This test was performed on the Jenn taco c503 platform.
Effective 01/30/23, a change in test platforms from the
Sch[employer]z [employer] Baker to the Jenn taco c503 may have shifted
HbA1c results compared to historical results.
Based on laboratory validation testing conducted at
[facility], the Jenn platform relative to the Schmitz
platform had an average increase in HbA1c value of
< or = 0.3%. This difference is within accepted
variability established by the National Glycohemoglobin
Standardization Program. Note that not all individuals
will have had a shift in their results and direct
comparisons between historical and current results for
testing conducted on different platforms is not
recommended.

Specimen Received d/t: 06/03/2023 01:02:00

Lab test performed by:
[facility], [facility]
[address]
[place] [phone]
Husam Melendez MD eAG (mg/dL) 06/03/2023 05:16:00 123 (mg/dL) Final
Specimen Received d/t: 06/03/2023 01:02:00

Lab test performed by:
[facility], [facility]
[address]
[place] [phone]
Husam Melendez MD Performing Location
--- OUTSIDE RECORDS SUMMARY | 2023-06-22 14:41 | External Medical Summary | Continuity of Care Document ---
Author Name Unknown Organization [facility] [address] [place], [place] [address] Address [address] [place] [id number] Care Team Providers Care Inventory Associate Name Role Phone Katia Marie Primary Care Physician [phone] [id number] Date(s): 05/31/23 - 05/31/23 [facility] [address] [place] [id number] [facility] Medicine [address] [address] Encounter Diagnosis Left knee DJD(Discharge Diagnosis) - 05/31/23 Discharge Disposition: Home or Self Care Attending Physician: KATIE Bowens, Lidya Referring Physician: MD Briseyda, Sam A Allergies, Adverse Reactions, Alerts Substance Reaction [...] qhs, Disp# 90 tab, Refills: 3, Pharmacy: [facility] Start Date: 07/07/22 Status: Ordered BuSpar 10 mg oral tablet Start: 11/10/22 16:11:00 EDT, See Instructions, Disp# 45 tab, Refills: 3, 0.5 tab po bid, Pharmacy:[facility] Start Date: 11/10/22 Status: Ordered hydroCHLOROthiazide 50 mg oral tablet Start: 01/18/23 17:47:00 EST, 1 tab, PO, Daily, Disp# 90 tab, Refills: 3, Pharmacy: [facility] Start Date: 01/18/23 Status: Ordered hydrocortisone 2.5% topical cream Start: 05/18/23 12:13:00 EDT, See Instructions, Disp# 28 g, Refills: 0, APPLY TO AFFECTED AREAS TWICE DAILY, Pharmacy: [facility] Start Date: 05/18/23 Status: Ordered hydrocortisone 2.5% topical cream Start: 01/17/22 15:18:00 EST, 1 appl, topical, bid, Disp# 30 g, Refills: 3, Pharmacy: [facility] Start Date: 01/17/22 Status: Ordered LORazepam 0.5 mg oral tablet Start: 05/18/23 12:12:00 EDT, 1 tab, PO, qhs, Disp# 30 tab, Refills: 0, Note to Pharmacy: PDMP verified, PRN: as needed for anxiety, Pharmacy: [facility] Start Date: 05/18/23 Status: Ordered losartan 25 mg oral tablet Start: 01/18/23 17:47:00 EST, 1 tab, PO, Daily, Disp# 90 tab, Refills: 3, Pharmacy: [facility] Start Date: 01/18/23 Status: Ordered Potassium Chloride (Cki-Civb-Dcd M20) 20 mEq oral tablet, extended release Start: 01/11/23 16:36:00 EST, 1 tab, PO, bid, Disp# 180 tab, Refills: 2, Pharmacy: [facility] Start Date: 01/11/23 Status: Ordered Mental Status 05/31/23 Barriers to Learning one year None evide nt Mandatory Health Literacy Documentation Yes Health Literacy Communication Barriers N ever Primary Language Serbian Problem List Condition Confirmation Course Effective Dates [...] Dates Health Status Cl inical Service Informant Left knee DJD Discharge Diagnosis 05/31/23 Procedures Procedure Date Related Diagnosis Body Site [...] 2.Moderate tricompartmental osteoarthritis of the left knee. [facility] [address] [place] [address], [address] [place], [address] Mammography Report Patient: ADINA RASHEED Date: 05/18/22 MR#: [id number]: [facility] Acct ID:[id number]: Date: 1965[facility] Zip: [place] [address] Age: 56Location: MAMMO Sex: FRoom/Bed: Att Phy: [...] 05/13/2020 mammogram, 01/24/2019 mammogram, 01/20/2017 mammogram - [facility], 03/21/2014 mammogram, and 03/26/2013 mammogram - [facility]. BREAST COMPOSITION: There are scattered areas of [...] is present. Mel Mark M.D. ay/:05/18/2022 15:07:53 Laundry Equipment Operator: RT Nathaly(Hanna)(M), [facility] letter sent: Normal 1/2 BI-RADS Code: ACR [...] oldest [Reference Range]: 1 Height 161.5 cm (05/31/23 11:14 AM) Patient Weight 112 kg (05/31/23 11:14 AM) Body Mass Index 42.94 kg/m2 (05/31/23 11:14 AM) Temperature [36.5-37.9 DegC] 36.5 DegC (05/31/23 11:14 AM) Heart Rate 79 bpm (05/31/23 11:14 AM) Social History Social History Type Response Smoking Status Never smoked cigaret blanca Sex Female Patient Care team information Care Team Personnel Name: THELMA Marie Shari A Position: Nurse Pract - Family Med Member Role: Primary Care Provider Address: Address: [address] [place] [address], [place] [address] Care Team Related Persons Name: LAZARO PUENTES Address: [address] [place] [address] [place] [phone]
--- OUTSIDE RECORDS SUMMARY | 2023-06-22 14:41 | External Medical Summary ---
Author Name Unknown Address Unknown Organization : Laboratory Report Ordering Provider Test Date Status Bianca Montalvoaditi 06/02/2023 07:33:00 Final Observation Date Value Abnormality Reference (Units ) Status Cholesterol.total/Cholest carla in HDL [Mass Ratio] in Serum or Plasma 06/03/2023 05:16:00 2.7 <5.0 ((calc)) Final
Specimen Received d/t: 06/03/2023 01:02:00

Lab test performed by:
[facility], [facility]
[address] [place] [address]
Husam Melendez MD Cholesterol in HDL [Mass/vol ume] in Serum or Plasma 06/03/2023 05:16:00 57 > OR = 50 (mg/dL) Final
Specimen Received d/t: 06/03/2023 01:02:00

Lab test performed by:
[facility], [facility]
[address] [place]
[place] [address]
Husam Melendez MD LDL Chol 06/03/2023 05:16:00 80 (mg/dL (ca lc)) Final Reference range: <100
<b r/>Desirable range <100 mg/dL for primary prevention;
<70 mg/dL for patients with CHD or diabetic patients
with > or = 2 CHD risk factors.

LDL-C is now calculated using the Stas-Hirsch
calculation, which is a validated novel method providing
better accuracy than the Friedewald equation in the
estimation of LDL-C.
Stas WHITESIDE et al. JULIA. 2013;310(19): 2061- 2068
(http://education.PATHSENSORS/faq/NVH273)

Specimen Received d/t: 06/03/2023 01:02:00

Lab test performed by:
[facility], [facility]
[address]
[place] [address]
Husam Melendez MD Non HDL Chol 06/03/2023 05:16:00 99 <130 (m g/dL (calc)) Final For patients with diabetes p melina 1 major ASCVD risk
factor, treating to a non-HDL-C goal of <100 mg/dL
(LDL-C of <70 mg/dL) is considered a therapeutic
option.

Specimen Received d/t: 06/03/2023 01:02:00

Lab test performed by:
[facility], [facility]
[address]
[place] [address]
Husam Melendez MD Cholesterol [Mass/volume] in Serum or Plasma 06/03/2023 05:16:00 156 <200 (mg/dL) Final
Specimen Received d/t: 06/03/2023 01:02:00

Lab test performed by:
[facility], [facility]
[address]
[place] [address]
Husam Melendez MD Triglyceride [Mass/volume] i n Serum or Plasma 06/03/2023 05:16:00 111 <150 (mg/dL) Final
Specimen Received d/t: 06/03/2023 01:02:00

Lab test performed by:
[facility], [facility]
[address]
[place] [address]
Husam Melendez MD Performing Location
--- OUTSIDE RECORDS SUMMARY | 2023-06-22 14:41 | External Medical Summary ---
Author Name Unknown Address Unknown Organization : Laboratory Report Ordering Provider Test Date Status Bianca Montalvoaditi 06/02/2023 07:33:00 Final Observation Date Value Abnormality Reference (Units ) Status Creatinine [Mass/volume] in Serum or Plasma 06/03/2023 05:16:00 0.66 0.50-1.03 (mg/dL) Final
Specimen Received d/t: 06/03/2023 01:02:00

Lab test performed by:
[facility], [facility]
[address]
[place] [address]
Husam Melendez MD Chloride [Moles/volume] in S naeem or Plasma 06/03/2023 05:16:00 101 98-110 (mmol/L) Final
Specimen Received d/t: 06/03/2023 01:02:00

Lab test performed by:
[facility], [facility]
[address]
[place] [address]
Husam Melendez MD Alanine aminotransferase [En zymatic activity/volume] in Serum or Plasma 06/03/2023 05:16:00 16 6-29 (U/L) Final
Specimen Received d/t: 06/03/2023 01:02:00

Lab test performed by:
[facility], [facility]
[address]
[place] [address]
Husam Melendez MD Gl[facility] 06/03/2023 05:16:00 2.7 1.9-3 .7 (g/dL (calc)) Final
Specimen Received d/t: 06/03/2023 01:02:00

Lab test performed by:
[facility], [facility]
[address]
[place] [address]
Husam Melendez MD Urea nitrogen/Creatinine [Ma ss Ratio] in Serum or Plasma 06/03/2023 05:16:00 SEE NOTE: 6-22 ((c alc)) Final Not Reported: BUN and Creati nine are within
reference range.

Specimen Received d/t: 06/03/2023 01:02:00

Lab test performed by:
[facility], [facility]
[address]
[place] [address]
Husam Melendez MD Bilirubin.total [Mass/volume ] in Serum or Plasma 06/03/2023 05:16:00 0.4 0.2-1.2 (mg/dL) Fi nal
Specimen Received d/t: 06/03/2023 01:02:00

Lab test performed by:
[facility], [facility]
[address]
[place] [address]
Husam Melendez MD Ca[facility] 06/03/2023 05:16:00 9.3 8.6-10.4 ( mg/dL) Final
Specimen Received d/t: 06/03/2023 01:02:00

Lab test performed by:
[facility], [facility]
[address]
[place] [address]
Husam Melendez MD Urea nitrogen [Mass/volume] in Serum or Plasma 06/03/2023 05:16:00 15 7-25 (mg/dL) Final
Specimen Received d/t: 06/03/2023 01:02:00

Lab test performed by:
[facility], [facility]
[address]
[place] [address]
Husam Melendez MD Potassium [Moles/volume] in Serum or Plasma 06/03/2023 05:16:00 4.1 3.5-5.3 (mmol/L) Eva l
Specimen Received d/t: 06/03/2023 01:02:00

Lab test performed by:
[facility], [facility]
[address]
[place] [address]
Husam Melendez MD Aspartate aminotransferase [ Enzymatic activity/volume] in Serum or Plasma 06/03/2023 05:16:00 16 10-35 (U/L) Final
Specimen Received d/t: 06/03/2023 01:02:00

Lab test performed by:
[facility], [facility]
[address]
[place] [address]
Husam Melendez MD Albumin [Mass/volume] in Ser um or Plasma 06/03/2023 05:16:00 4.1 3.6-5.1 (g/dL) Final
Specimen Received d/t: 06/03/2023 01:02:00

Lab test performed by:
[facility], [facility]
[address]
[place] [address]
Husam Melendez MD eGFR 06/03/2023 05:16:00 101 > OR = 60 (mL/min/1.73m2) Final
Specimen Received d/t: 06/03/2023 01:02:00

Lab test performed by:
[facility], [facility]
[address]
[place] [address]
Husam Melendez MD Albumin/Globulin [Mass Ratio ] in Serum or Plasma 06/03/2023 05:16:00 1.5 1.0-2.5 ((calc)) F inal
Specimen Received d/t: 06/03/2023 01:02:00

Lab test performed by:
[facility], [facility]
[address]
[place] [address]
Husam Melendez MD Carbon dioxide, total [Moles /volume] in Serum or Plasma 06/03/2023 05:16:00 28 20-32 (mmol/L) Fin al
Specimen Received d/t: 06/03/2023 01:02:00

Lab test performed by:
[facility], [facility]
[address]
[place] [address]
Husam Melendez MD Glucose [Mass/volume] in Serum or Plasma 06/03/2023 05:16:00 110 Above high normal 65-99 (mg/dL) Final
Fasting reference inte rval

For someone without known diabetes, a glucose value
between 100 and 125 mg/dL is consistent with
prediabetes and should be confirmed with a
follow-up test.

Specimen Received d/t: 06/03/2023 01:02:00

Lab test performed by:
[facility], [facility]
[address]
[place] [address]
Husam Melendez MD Sodium [Moles/volume] in Ser um or Plasma 06/03/2023 05:16:00 137 135-146 (mmol/L) Eva l
Specimen Received d/t: 06/03/2023 01:02:00

Lab test performed by:
[facility], [facility]
[address]
[place] [address]
Husam Melendez MD Protein [Mass/volume] in Ser um or Plasma 06/03/2023 05:16:00 6.8 6.1-8.1 (g/dL) Final
Specimen Received d/t: 06/03/2023 01:02:00

Lab test performed by:
[facility], [facility]
[address]
[place] [address]
Husam Melendez MD Alkaline phosphatase [Enzyma tic activity/volume] in Serum or Plasma 06/03/2023 05:16:00 66 37-153 (U/L) Final
Specimen Received d/t: 06/03/2023 01:02:00

Lab test performed by:
[email or web address], [facility]
[address]
[place] [address]
Husam Melendez MD Performing Location
--- NOTE | 2023-06-23 13:06 | Discharge Summary ---
Date of Service June 23, 2023 Admission HPI Per Admitting Provider This 57-year-old female was admitted through same-day surgery on 06/20/2023 for left total knee arthroplasty. She underwent successful and uneventful left total knee arthroplasty and was taken to the recovery room in satisfactory condition. She remained stable throughout the evening but did have some issues with pain control. Vitals remained stable and unremarkable. She was reevaluated on the morning of 06/20. She participated in PT and OT, but remained significantly painful. An additional day in the hospital was recommended. She was able to ambulate in the halls. She was able to eat and void without difficulty. Vitals on again remained stable. The rest of the day was uneventful. The patient was reevaluated on the morning of 06/21. The patient felt significantly better, and pain was adequately controlled. She desired to be discharged to home. She again participated in PT and OT successfully. Her postsurgical dressings were changed to a Silverlon dressing. The patient remained afebrile during her entire hospital stay. No episodes of tachycardia or bradycardia. Postsurgical lab values were within acceptable limits. H&H dropped to 10.9 and 32.6. She did not require transfusion. Postoperative instructions were provided. Prescription for oxycodone was sent to her pharmacy. Admission Exam (Per Admitting) Musculoskeletal General: Well-developed, well-nourished, middle-aged female, in no acute distress. Laying in bed. Alert and oriented. Skin: Warm and dry with good turgor. Postsurgical dressings were in place. Expected postoperative ecchymosis and edema were noted. No active bleeding occurred from her surgical incision. Musculoskeletal: The patient was able to set her quad and perform straight leg raise with minimal assistance. She has full terminal extension and flexion to roughly 60 degrees. Intact motor function of the ankle and toes. Neurologic: Gross sensation is intact across the left leg by soft touch. Peripheral pulses are 2+. Specialty Data Orthopedic Postop radiographic imaging confirms a well positioned total knee arthroplasty. No evidence of fracture. Discharge Data Procedures Performed Operation Date: 06/20/23 12:20 Actual Procedures p Left Total Knee Arthroplasty(Left) - Sam Rain MD Hospital Course (1) S/P total knee arthroplasty: Written discharge instructions were provided. Postoperative prescription for oxycodone was sent to her pharmacy. Continue aspirin 81mg twice daily for DVT prophylaxis. Follow-up in the office in 2 weeks as scheduled for Zipline removal. Keep the knee clean. Silverlon dressing should remain in place. She may shower directly over the Silverlon. Use the walker for ambulation. Resume her usual diet. Continue the JUMANA stockings for 3 weeks.
== END 2023-06-22 12:48 | disposition home health service (06) ==
LOC: 3E 10:25 → ASU 10:25